=== PATIENT | female | born 1965 | race Caucasian/White ===

== ENCOUNTER 2017-09-06 16:29 | Emergency (ER) | payer SELFPAY ==
[~2017-09-06] VITALS: Ht 167.6 cm; Wt 95.8 kg
[2017-09-06 16:34] VITALS: BP 156/93; PULSE 84; TEMP 36.8; O2SAT 98; Ht 167.6 cm; Wt 95.8 kg
[2017-09-06] MEDS ORDERED: AMOX875T PO (17:06)
[2017-09-06] MEDS ORDERED: DIPHTHERIA/TETANUS/PERTUSSIS 0.5 ML SYR/VIAL IM. ONE (17:15)
--- NOTE | 2017-09-06 18:41 | EMERGENCY ROOM VISIT NOTE ---
History First contact with patient: 16:43 Chief Complaint: BITE Stated Complaint: DOG BITE, SEEPING CYST ON BACK OF HEAD History of Present Illness The patient is a 51 year old female who presents to the Emergency Room with 2 complaints. The patient complains primarily of a dog bite to the right face that happened approximately one hour ago. This was the patient's dog. The dog is up-to-date on its immunizations. The patient cleansed the wound with hydrogen peroxide, and applied tree tea oil. She denies any significant bleeding or pain. The patient is uncertain of her last tetanus immunization. She rates her discomfort a 2 out of 10. The patient also reports a history of recurrent cysts on her body. She recently developed a cyst on the scalp crown they got red and drained. She now reports a new lump adjacent to the prior one. She has had them on other parts of her scalp, forehead and axillae. She has had wound cultures performed that were negatve for MRSA. She rates her scalp discomfort a 2 out of 10. Review of Systems 10 system review was performed and was negative except for pertinent positives and negatives as indicated in history of present illness Past Medical/Surgical History Medical Problems: (1) Cellulitis Of Arm (2) Dental Disorder Nos (3) Skin Disorder Nos (4) Tobacco Use Disorder Surgical Problems: (1) No history of previous surgery Family History FH: cancer FH: diabetes mellitus FH: heart disease Social History Smoking Status: Never Smoker Alcohol Use: none Drug Use: none Housing Status: lives with family Occupation Status: unemployed Current/Historical Medications Scheduled Amoxicillin & Pot Clavulanate (Augmentin 875-125 mg), 1 TAB PO BID Physical Exam Vital Signs Date Time Temp Pulse Resp B/P (MAP) Pulse Ox O2 Delivery O2 Flow Rate FiO2 09/06/17 16:34 36.8 84 16 156/93 98 Room Air Physical Exam CONSTITUTIONAL: Healthy and well nourished. Patient does not appear in any acute distress. HEENT: Examination shows 2 superficial lacerations just lateral and inferolateral to the right eye. They do not extend through the dermis. No hematoma formation. Pupils equal, round and reactive. No subconjunctival hemorrhage. No tenderness to palpation of the facial bones. Further examination shows a skin colored marble-sized soft tissue mass of the anterior crown. There is no surrounding erythema or significant tenderness to palpation. NECK: Full active range of motion without discomfort. RESPIRATORY: Clear to auscultation bilaterally with no wheezing, crackles, rhonchi or stridor. INTEGUMENTARY: No rash or other significant dermatologic conditions noted. NEUROLOGIC: Facial sensations are intact. Medical Decision & Procedures Medications Administered Medications (Trade) Dose Ordered Sig/Dianne Route Start Time Stop Time Status Last Admin Dose Admin Diphtheria/ Pertussis/Tetanus Vacc (Adacel Inj) 0.5 ml ONCE ONCE IM. 09/06/17 17:15 09/06/17 17:16 DC 09/06/17 17:19 0.5 ML ED Course Patient history and physical exam were performed. Nurse's notes were reviewed. Vital signs were reviewed, showing an elevated blood pressure 156/93. The patient reports that she currently does not have insurance or a family doctor. She was encouraged to keep track of her blood pressure for review with the family doctor when she establishes insurance coverage. The patient was administered Adacel IM. The patient was advised that the wounds will not require any type of primary closure. She was encouraged to keep them clean and covered with an antibiotic ointment until they heal. Regarding her scalp lesions, she reports that she has had these multiple times. She was advised that there is certainly no present infection. Because the lesions are recurrent , I did suggest that she follow-up with a animal control supervisor to discuss further treatment options. The patient was provided a prescription for Augmentin twice a day 5 days. I did query [employer] in order to provide the patient with a coupon for her antibiotic. This was sent to [facility]'s pharmacy. She was instructed to return to the emergency department for any developing facial infection. The patient is not eligible for [place] [employer] evaluation as she is a [facility] resident. She was encouraged to contact [facility] to see if there are any other resources in her [place] for further medical follow-up. The patient was happy with plan of care, and voiced understanding of all discharge instructions. Medical Decision Medication Reconcilliation Current Medication List: was personally reviewed by me Blood Pressure Screening Patient's blood pressure: Elevated blood pressure Blood pressure disposition: Did not require urgent referral Impression Primary Impression: Dog bite of face Additional Impression: Dermoid cyst of scalp Departure Information Dispostion Home / Self-Care Prescriptions Amoxicillin & Pot Clavulanate (Augmentin 875-125 mg) 1 Tab Tab 1 TAB PO BID for 5 Days, #10 TAB Prov: Breezy Lund PA 09/06/17 Forms HOME CARE DOCUMENTATION FORM, IMPORTANT VISIT INFORMATION Patient Instructions My [facility] Additional Instructions Complete all Augmentin antibiotics as prescribed. Keep wounds covered with an antibiotic ointment for better wound healing. Intermittently apply ice as needed for swelling. Ibuprofen or Tylenol as needed for pain. Suggest follow-up with a animal control supervisor as needed for any worsening scalp cysts, as they usually have to be surgically removed because of tendency to recur. Problem Qualifiers Primary Impression: Dog bite of face Encounter type: initial encounter Qualified Codes: S01.85XA - Open bite of other part of head, initial encounter; W54.0XXA - Bitten by dog, initial encounter
== END 2017-09-06 17:24 | disposition home or self-care (01) ==
LOC: C.EDB 16:31 → C.EDD 17:24
DX: S01.85XA Open bite of other part of head, initial encounter (principal); W54.0XXA Bitten by dog, initial encounter; D23.4 Other benign neoplasm of skin of scalp and neck; Z83.3 Family history of diabetes mellitus; Z23 Encounter for immunization